=== PATIENT | female | born 1950 | race Caucasian/White ===

== ENCOUNTER 2022-06-14 10:40 | Outpatient (CLI) | payer MEDICARE, BC, OTHER | END 2022-06-14 10:41 | disposition home or self-care (01) | LOC: BICRAD 10:40 | PROVIDERS: ATTEND Family Medicine | DX: M99.03 Segmental and somatic dysfunction of lumbar region (principal); M76.31 Iliotibial band syndrome, right leg; M47.816 Spondylosis without myelopathy or radiculopathy, lumbar region; M16.0 Bilateral primary osteoarthritis of hip | CPT/HCPCS: 72100 ==

== ENCOUNTER 2023-01-16 10:56 | Outpatient (CLI) | payer MEDICARE, BC, OTHER | END 2023-01-16 10:57 | disposition home or self-care (01) | LOC: BICMAMMO 10:56 | PROVIDERS: ATTEND Family Medicine | DX: Z12.31 Encounter for screening mammogram for malignant neoplasm of breast (principal); Z80.3 Family history of malignant neoplasm of breast | CPT/HCPCS: 77063; 77067 ==

== ENCOUNTER 2023-06-05 07:31 | Outpatient (CLI) | payer MEDICARE, OTHER | END 2023-06-05 07:32 | disposition home or self-care (01) | LOC: BICULT 07:31 | PROVIDERS: ATTEND Internal Medicine | DX: C91.10 Chronic lymphocytic leukemia of B-cell type not having achieved remission (principal); D69.6 Thrombocytopenia, unspecified; N28.1 Cyst of kidney, acquired; R16.2 Hepatomegaly with splenomegaly, not elsewhere classified | CPT/HCPCS: 76700 ==

== ENCOUNTER → 2023-08-08 | Day surgery (SDC) | payer MEDICARE, OTHER ==
[~2023-08-08] MED LIST: Lidocaine 1% PF 5 ML VIAL ONE; Midazolam HCl 2 mg/2 ml Vial ONE; fentaNYL 50 mcg/mL 1 mL Vial ONE
[2023-08-08 12:47] LABS: Prothrombin Time 13.5 sec (12.0-14.7)
[2023-08-08 12:48] LABS: PTT 25.5 sec (22.9-36.1)
[2023-08-08 12:54] VITALS: BP 167/66; TEMP 97.9
[2023-08-08 13:49] LABS: Hemoglobin 11.9 g/dL (12.0-16.0); Mean Corpuscular HGB CONC 33.1 g/dL (32.0-36.0); Mean Corpuscular Hemoglobin 34.1 pg (27.0-31.0); Mean Corpuscular Volume 103.2 fL (78.0-98.0); Mean Platelet Volume 12.7 fL (7.4-10.4); Platelet Count 85 10x3/uL (130-400); RBC Distribution Width 14.6 % (11.5-14.5); Red Blood Cell (RBC) Count 3.49 mill/uL (4.20-5.40)
[2023-08-08 13:58] LABS: Band 1 % (5-11); Burr Cells SLIGHT = 2-5 cells HPF (0-1); Elliptocytes MODERATE= 6-15 cells HPF (0-1); Giant Platelets 3.9 % (0-5); Large Platelets 2.9 % (0-5); Lymphocytes 41 % (21-51); Macrocytosis SLIGHT = 6-15 cells HPF (0-5); Neutrophil 54 % (42-75); Platelet Adequacy Comment Platelets Decreased; Polychromasia SLIGHT = 2-3 cells HPF (0-2); Tear Drops SLIGHT = 2-5 cells HPF (0-1)
[2023-08-08 16:07] LABS: Ref Lab Test Ordered COMPAS EVALUATION; Reference Lab Name NEO
== END ==
LOC: CT 12:01
PROVIDERS: ATTEND Internal Medicine
PROC: 079T3ZX Drainage of Bone Marrow, Percutaneous Approach, Diagnostic (ICD-10-PCS; principal; 2023-08-08)
DX: C91.10 Chronic lymphocytic leukemia of B-cell type not having achieved remission (principal); D69.6 Thrombocytopenia, unspecified; E11.9 Type 2 diabetes mellitus without complications; I10 Essential (primary) hypertension; F32.9 Major depressive disorder, single episode, unspecified; Z79.82 Long term (current) use of aspirin; Z79.84 Long term (current) use of oral hypoglycemic drugs; Z79.899 Other long term (current) drug therapy; Z90.710 Acquired absence of both cervix and uterus; Z96.652 Presence of left artificial knee joint
CPT/HCPCS: 38222; 77012; 85025; 85097; 85610; 85730; J3010; 36415; 88184; 88237; 88264; 88280; 88305; 88311; 88313; J2250

== ENCOUNTER 2025-02-23 12:21 | Outpatient (CLI) | payer MEDICARE, OTHER | END 2025-02-23 12:22 | disposition home or self-care (01) | LOC: ULT 12:21 | PROVIDERS: ATTEND Family Medicine | DX: E04.1 Nontoxic single thyroid nodule (principal) | CPT/HCPCS: 76536 ==